=== PATIENT | male | born 1960 | race Caucasian/White ===

== ENCOUNTER 2017-09-28 12:13 | Day surgery (SDC) | payer BC ==
[~2017-09-28 12:13] MED LIST: Lactated Ringers 1,000 ML IV SCH; Lidocaine 2% 5 ML SDV ONE; Midazolam 1 MG/ML 2 ML SDV ONE; Propofol 200 MG/20 ML SDV ONE; fentaNYL 100 MCG/2 ML SDV ONE
--- NOTE | 2017-09-28 12:55 | PCM.PREANE ---
Preanesthetic Assessment - Anesthesia/Transfusion/Family Hx Anesthesia History: Prior Anesthesia Without Reaction Family History of Anesthesia Reaction: No Transfusion History: No Prior Transfusion(s) - Review of Systems General: No Symptoms Pulmonary: No Symptoms Cardiovascular: No Symptoms Gastrointestinal: No Symptoms Neurological: No Symptoms Other: Reports: None - Physical Assessment NPO Status Date: 09/27/17 Height: 1.83 m Weight: 114.305 kg ASA Class: 1 Mental Status: Alert & Oriented x3 Airway Class: Mallampati = 1 Dentition: Reports: Normal Dentition (implant in central maxillary incisor) ROM/Head Extension: Full Lungs: Clear to Auscultation, Normal Respiratory Effort Cardiovascular: Regular Rate, Regular Rhythm - Allergies Allergies/Adverse Reactions: Allergies Allergy/AdvReac Type Severity Reaction Status Date / Time No Known Allergies Allergy Verified 09/25/17 13:12 - Anesthesia Plan Pre-Op Medication Ordered: None - Acknowledgements Anesthesia Type Planned: MAC Pt an Appropriate Candidate for the Planned Anesthesia: Yes Alternatives and Risks of Anesthesia Discussed w Pt/Guardian: Yes Pt/Guardian Understands and Agrees with Anesthesia Plan: Yes PreAnesthesia Questionnaire HEENT History: Reports: Allergic Rhinitis, Other (See Below) Other HEENT History: wears glasses, has dental implant Musculoskeletal History: Reports: Arthritis Endocrine/Metabolic History: Reports: Obesity/BMI 30+ - Past Surgical History Head Surgeries/Procedures: Reports: None HEENT Surgical History: Reports: Oral Surgery - SUBSTANCE USE Smoking Status *Q: Never Smoker Recreational Drug Use History: No - HOME MEDS Home Medications: Home Meds Ascorbic Acid [Vitamin C] 1 tab PO ASDIRECTED 09/25/17 [History] Cbb Oil 1 tab PO ASDIRECTED 09/25/17 [History] MV-Min/Vit C/Glut/Elham Ac/HC124 [Airborne Tablet Chewable] 1 tab PO DAILY [History] Multivitamin [Multivitamins] 1 tab PO DAILY 09/25/17 [History] Vitamin B Complex 1 tab PO DAILY 09/25/17 [History] - CURRENT (IN HOUSE) MEDS Current Meds: Current Medications Lactated Ringer's (Ringers, Lactated) 1,000 mls @ 125 mls/hr IV ASDIRECTED SOPHIA Last Admin: 09/28/17 12:34 Dose: 125 mls/hr Discontinued Medications Fentanyl (Sublimaze) Confirm Administered Dose 100 mcg .ROUTE .STK-MED ONE Stop: 09/28/17 11:57 Lidocaine (Xylocaine-Mpf 2%) Confirm Administered Dose 5 ml .ROUTE .STK-MED ONE Stop: 09/28/17 11:57 Midazolam HCl (Versed 1 Mg/Ml) Confirm Administered Dose 2 mg .ROUTE .STK-MED ONE Stop: 09/28/17 11:57 Propofol (Diprivan 20 Ml) Confirm Administered Dose 200 mg .ROUTE .STK-MED ONE Stop: 09/28/17 11:57
[2017-09-28] MEDS ORDERED: Propofol 200 MG/20 ML SDV ONE ×2 (13:57→14:09)
[2017-09-28] MEDS ORDERED: Ondansetron 4 MG Tab.DIS PO PRN (14:25)
--- NOTE | 2017-09-28 14:27 | PCM.OPNOTE ---
- General Post-Op/Procedure Note Date of Surgery/Procedure: 09/28/17 Operative Procedure(s): Colonoscopy with cold ascending colon polypectomy Pre Op Diagnosis: Desire for colorectal cancer screening Post-Op Diagnosis: Ascending colon polyp Anesthesia Technique: MAC (ASA I) Primary Surgeon: Gene Melchor Gluing Machine Operator Automatic: Steve Hdz Condition: Good Free Text/Narrative:: Dictation [id number] CPT CODE [id number]
[2017-09-28] MEDS ORDERED: Lactated Ringers 1,000 ML IV SCH (14:30)
--- NOTE | 2017-09-28 14:49 | PCM.POSTAN ---
POST ANESTHESIA ASSESSMENT - MENTAL STATUS Mental Status: Alert, Oriented - RESPIRATORY Respiratory Status: Respiratory Rate WNL, Airway Patent, O2 Saturation Stable - CARDIOVASCULAR CV Status: Pulse Rate WNL, Blood Pressure Stable - GASTROINTESTINAL GI Status: No Symptoms - POST OP HYDRATION Hydration Status: Adequate & Stable
--- NOTE | 2017-09-28 14:49 | PCM48HPAN ---
Post Anesthesia Note - EVALUATION WITHIN 48HRS OF ANESTHETIC Vital Signs in Normal Range: Yes Patient Participated in Evaluation: Yes Respiratory Function Stable: Yes Airway Patent: Yes Cardiovascular Function Stable: Yes Hydration Status Stable: Yes Pain Control Satisfactory: Yes Nausea and Vomiting Control Satisfactory: Yes Mental Status Recovered: Yes Resp Rate: 12
--- NOTE | 2017-09-28 20:55 | OR ---
SURGEON: Gene Melchor M.D. DATE OF PROCEDURE: 09/28/2017 OPERATION PERFORMED: Colonoscopy with cold ascending colon polypectomy. ELEMENTARY SCHOOL PROFESSIONAL: Dr. Hdz, PGY3. ANESTHESIA: MAC. ASA CLASSIFICATION: I. PREOPERATIVE DIAGNOSIS: Desire for colorectal cancer screening. POSTOPERATIVE DIAGNOSIS: Ascending colon polyp. DESCRIPTION OF PROCEDURE: The patient was taken to the endoscopy room, positioned on the endoscopy table in the left lateral decubitus position. Time-out was called for appropriate identification of patient and procedure. Monitored anesthesia care was provided. The colonoscope was inserted into the rectum and advanced with moderate difficulty to the cecum where the colonoscope was retroflexed to visualize the ascending colon from below. The colonoscope was then straightened and slowly withdrawn. The cecum did not show any tumors or polyps. One small polyp was encountered in the ascending colon and removed with the cold biopsy forceps. The remainder of the ascending colon, hepatic flexure, transverse colon, splenic flexure, descending colon, sigmoid colon, and rectum showed no tumors, polyps, diverticula, or angiodysplastic changes. There was no evidence of inflammatory bowel disease. Once the colonoscope was withdrawn to the rectum, it was retroflexed to visualize the anal orifice from above. Again, no tumors or polyps were seen and there were no acute hemorrhoidal changes. The colonoscope was then straightened, the rectum aspirated, and the colonoscope removed. The patient tolerated the procedure well and was taken to recovery room in stable condition. ROBER / KINDRA /[id number]
== END 2017-09-28 15:07 | disposition home or self-care (01) ==
LOC: MW.SDS 12:13
PROVIDERS: ATTEND Surgery
DX: Z12.11 Encounter for screening for malignant neoplasm of colon (principal); D12.2 Benign neoplasm of ascending colon; Z79.899 Other long term (current) drug therapy; Z72.0 Tobacco use
CPT/HCPCS: 45380; J2250; J3010; J7120; 88305; J2704